=== PATIENT | female | born 1990 | race Caucasian/White ===

== ENCOUNTER 2024-04-18 16:32 | Emergency (ER) | payer BC, MEDICAID ==
[2024-04-18] MEDS: Ibuprofen 800 MG Tab PO ONE (17:32)
[2024-04-18] MEDS: Amoxicillin/Clavulanate K 875-125 MG Tab PO ONE (17:32)
== END 2024-04-18 17:48 | disposition home or self-care (01) ==
LOC: JD.ED 16:32
DX: K06.8 Other specified disorders of gingiva and edentulous alveolar ridge (principal); K08.89 Other specified disorders of teeth and supporting structures; Z88.2 Allergy status to sulfonamides
CPT/HCPCS: 99282; A9270